=== PATIENT | female | born 1990 | race Two or more races ===

== ENCOUNTER 2018-08-26 07:15 | Inpatient (IN) | payer MEDICAID ==
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
[2018-09-22] MEDS ORDERED: TRANEXAMIC ACID 1,000 MG in NS 100 ML IV ONE ×2 (05:57→14:11)
[2018-09-22] MEDS ORDERED: ACETAMINOPHEN 500 MG TAB PO ONE (05:57)
[2018-09-22] MEDS ORDERED: PREGABALIN 150 MG CAP PO ONE (05:57)
[2018-09-22] MEDS ORDERED: SCOPOLAMINE HYDROBROMIDE 1 MG/3 DAYS PATCH TD ONE (05:57)
[2018-09-22] MEDS ORDERED: ceFAZolin 2 GM/DEXTROSE 100 ML IV ONE (05:57)
[2018-09-22] MEDS ORDERED: LIDOCAINE 1% 2 ML INJ ID PRN (06:01)
[2018-09-22] MEDS ORDERED: LR 1,000 ML IV ONE (06:01)
[2018-09-22] MEDS ORDERED: MIDAZOLAM 2 MG/2 ML VIAL IVP ONE (07:04)
--- NOTE | 2018-09-22 07:04 | PDANEPAE ---
ANE History of Present Illness right hip dysplasia ANE Past Medical History - Cardiovascular History Hx Hypertension: No Hx Arrhythmias: Yes Hx Chest Pain: No Hx Coronary Artery / Peripheral Vascular Disease: No Hx CHF / Valvular Disease: No Hx Palpitations: Yes Cardiovascular History Comment: pvcs. atrial septal defect. bubble study negative - Pulmonary History Hx COPD: No Hx Asthma/Reactive Airway Disease: No Hx Recent Upper Respiratory Infection: No Hx Oxygen in Use at Home: No Hx Sleep Apnea: No Sleep Apnea Screening Result - Last Documented: Negative - Neurologic History Hx Cerebrovascular Accident: No Hx Seizures: No Hx Dementia: No - Endocrine History Hx Diabetes: No Hypothyroid: No Hyperthyroid: No Obesity: mild - Renal History Hx Renal Disorders: No - Liver History Hx Hepatic Disorders: No - Neurological & Psychiatric Hx Hx Neurological and Psychiatric Disorders: No - Cancer History Hx Cancer: No - Congenital Disorder History Hx Congenital Disorders: Yes Congenital History Comment: ATRIAL SEPTAL DEFECT - GI History GERD: no Hx Gastrointestinal Disorders: Yes Gastrointestinal History Comment: IBS WITH CONSTIPATION - Other Health History Other Health History: polycystic ovarian disease. diminished hearing right ear - Chronic Pain History Chronic Pain: Yes (spine shoulder) - Surgical History Prior Surgeries: colonoscopy, endoscopy, vaginal , D&C ANE Review of Systems Review of systems is: negative Review of Systems: - Exercise capacity Exercise capacity: >=4 METS METS (RN): 5 METS ANE Patient History - Allergies Allergies/Adverse Reactions: morphine Allergy (Verified 09/19/18 16:09) Hives NSAIDS (Non-Steroidal Anti-Inflamma Allergy (Verified 09/19/18 16:09) avoid due to clotting issue sumatriptan Allergy (Verified 09/19/18 16:09) Hives - Home Medications Home medications: home medication list seen and reviewed Home Medications: Metformin HCl [Metformin 1000 mg] 1,000 mg PO BIDMEAL 09/08/18 [Last Taken 09/09] Pnv No.121/Iron/Folic Acid [ Multivitamin Tablet] 1 each PO DAILY [Last Taken 09/09/18] traMADol [Ultram 50 mg (*)] 50 mg PO QID PRN 09/08/18 [Last Taken 09/16/18 06:30 ] Diazepam [Valium 2 MG (*)] 2 mg PO Q6HRS PRN 09/12/18 [Last Taken 09/21/18 21:30 ] Naproxen Sodium [Naprelan] 500 mg PO BID 09/12/18 [Last Taken 09/19/18] oxyCODONE IR [Oxycodone Ir (*)] 5 - 10 mg PO Q6HRS PRN 09/12/18 [Last Taken 05/30 21:30] - NPO status NPO Status: no food or drink >8 hours NPO Since - Liquids (Date): 09/22/18 NPO Since - Liquids (Time): 03:30 NPO Since - Solids (Date): 09/21/18 NPO Since - Solids (Time): 20:00 - Anes Hx Anes Hx: no prior problems - Smoking Hx Smoking Status: Heavy smoker - Family Anes Hx Family Anes Hx: none Family Hx Anesthesia Complications: mother bp drops ANE Labs/Vital Signs - Vital Signs Vital Signs: reviewed preoperatively; see RN documention for details Blood Pressure: 114/75 Heart Rate: 82 Respiratory Rate: 16 O2 Sat (%): 97 Height: 162.56 cm Weight: 81.647 kg ANE Physical Exam - Airway Neck exam: FROM Mallampati Score: Class 2 Mouth exam: normal dental/mouth exam - Pulmonary Pulmonary: no respiratory distress - Cardiovascular Cardiovascular: regular rate and rhythym - ASA Status ASA Status: II ANE Anesthesia Plan Anesthesia Plan: general endotracheal anesthesia
[2018-09-22] MEDS ORDERED: PROPOFOL 200 MG/20 ML VIAL ONE (07:08)
[2018-09-22] MEDS ORDERED: fentaNYL 100 MCG/2 ML INJ ONE ×2 (07:08→13:21)
[2018-09-22] MEDS ORDERED: HYDROmorphONE/DILAUDID 2 MG/ML INJ ONE ×3 (07:08→14:24)
[2018-09-22] MEDS ORDERED: ROCURONIUM 50 MG/5 ML VIAL ONE ×2 (07:12→11:11)
[2018-09-22] MEDS ORDERED: LIDOCAINE 2% 5 ML SDV ONE (07:13)
[2018-09-22] MEDS ORDERED: MIDAZOLAM 2 MG/2 ML VIAL ONE (07:18)
[2018-09-22] MEDS ORDERED: DEXAMETHASONE 4 MG/ML VIAL ONE ×2 (07:29)
[2018-09-22] MEDS ORDERED: PHENYLEPHRINE HCL 100 MCG/ML SYR ONE (07:51)
[2018-09-22] MEDS ORDERED: CITRATE DEXTROSE SOLN 500 ML BAG ONE (08:02)
[2018-09-22] MEDS ORDERED: PROMETHAZINE HCL 25 MG/ML INJ IVP PRN (08:34)
[2018-09-22] MEDS ORDERED: METOCLOPRAMIDE 10 MG/2 ML VIAL IVP PRN ×2 (08:34→13:34)
[2018-09-22] MEDS ORDERED: LABETALOL HCL 5 MG/ML 20 ML MDV IVP PRN (08:34)
[2018-09-22] MEDS ORDERED: NALOXONE HCL 0.4 MG/ML INJ IVP PRN ×2 (08:34→13:34)
[2018-09-22] MEDS ORDERED: ALBUTEROL 3 ML DEYVIAL IH PRN (08:34)
[2018-09-22] MEDS ORDERED: LR 500 ML IV PRN (08:34)
[2018-09-22] MEDS ORDERED: MEPERIDINE 25 MG/0.5 ML AMP IVP PRN (08:34)
[2018-09-22] MEDS ORDERED: oxyCODONE IR 5 MG TAB PO PRN (08:34)
[2018-09-22] MEDS ORDERED: PHENYLEPHRINE HCL 100 MCG/ML SYR IVP PRN (08:34)
[2018-09-22] MEDS ORDERED: ACETAMINOPHEN 500 MG TAB PO PRN (08:34)
[2018-09-22] MEDS ORDERED: ONDANSETRON 4 MG/2 ML VIAL ONE (11:46)
[2018-09-22] MEDS ORDERED: ceFAZolin 1 GM VIAL ONE (12:22)
[2018-09-22] MEDS: fentaNYL 100 MCG/2 ML INJ IVP PRN ×2 (13:23→13:40)
[2018-09-22] MEDS ORDERED: LACTULOSE 20 GM/30 ML UDCUP PO PRN (13:32)
[2018-09-22] MEDS ORDERED: ONDANSETRON DISINTEGRATING 4 MG TAB PO PRN (13:32)
[2018-09-22] MEDS ORDERED: MAGNESIUM HYDROXIDE 30 ML UDCUP PO PRN (13:32)
[2018-09-22] MEDS ORDERED: POLYETHYLENE GLYCOL 3350 17 GM PKT PO PRN (13:32)
[2018-09-22] MEDS ORDERED: BISACODYL 10 MG SUPP PR PRN (13:32)
[2018-09-22] MEDS ORDERED: ACETAMINOPHEN 325 MG TAB PO PRN ×2 (13:32→13:34)
[2018-09-22] MEDS ORDERED: ONDANSETRON 4 MG/2 ML VIAL IVP PRN (13:32)
[2018-09-22] MEDS ORDERED: diphenhydrAMINE 25 MG CAP PO PRN (13:34)
[2018-09-22] MEDS ORDERED: oxyCODONE IR 15 MG TAB PO PRN (13:36)
[2018-09-22] MEDS: DIAZEPAM 5 MG/ML 1 ML SYR IVP PRN ×2 (13:55→14:10)
[2018-09-22] MEDS ORDERED: DIAZEPAM 5 MG/ML 1 ML SYR ONE (13:56)
[2018-09-22] MEDS: HYDROmorphONE/DILAUDID 2 MG/ML INJ IVP PRN ×4 (14:25→15:54)
--- NOTE | 2018-09-22 14:46 | POSTANESTH ---
Post Anesthetic Evaluation Cardiovascular Status: Normal, Stable Respiratory Status: Normal, Stable Level of Consciousness/Mental Status: Can Participate in Eval Pain Control: Adequate, Prn Tx Ordered Nausea/Vomiting Control: Adequate, Prn Tx Ordered Complications Possibly Related to Anesthesia: None Noted
[2018-09-22] MEDS ORDERED: oxyCODONE IR 5 MG TAB ONE (14:49)
[2018-09-22] MEDS: oxyCODONE IR 5 MG TAB PO SCH ×3 (14:53→22:16)
--- NOTE | 2018-09-22 14:54 | PDMN ---
Medical Necessity Medical necessity: [facility] Musculoskeletal Surgery or Procedure: 28 yo s/p periacetabular osteotomy (OCTAVIANO) for hip dysplasia, [facility] obdulia
[2018-09-22] MEDS: DIAZEPAM 2 MG TAB PO PRN ×2 (17:00→23:11)
[2018-09-22] MEDS: HYDROmorphONE/DILAUDID 6 MG/30 ML PCA IV PRN (18:03)
[2018-09-22] MEDS: NS 1,000 ML IV SCH (18:04)
--- NOTE | 2018-09-22 18:07 | SUROPNOTE ---
ANJALI Operative Report - Surgery OPERATION NOTE~on Kenrcik Tobin Surgery was performed at:~[facility] Date of Surgery:~09/09/2018 Diagnosis:~ 1. Right~Femoroacetabular impingement (MARCE) Cam type, labral tear 2. Right~Hip Dyplasia Operation:~Right~Arthroscopic Labral repair~and ADVANECENT, CAM resection, Synovectomy, Capsular repair Indication: Failure to obtain satisfactory results with long standing conservative measures. Surgeon:~~~~~~~~~~~Kevin Hartley MD ~ Net Software Engineer:~~~~~~~~~~~~~WILLEM Pedro MD Anaesthetic:~~~~~General Findings~ Right~Hip: Labrum:~Torn and Frayed around~10-2~O'clock.~Everted mostly psoteriorly. Acetabulum:~Normal Fovea:~Partial tear of LT Femoral Head:~Normal cartilage Synovium:~severe~synovitis Peripheral Compartment:~Anterolateral CAM between~12~O'clock superiorly and 5~O' clock anteriorly Procedure: Supine on operating table. General anaesthetic. Antibiotics given. Standard traction set up, without perineal post. A spinal needle was guided to the femoral head neck junction and traction gradually applied with the joint vented. Local anesthetic infiltrated into the skin around the portals. Once~20mm of distraction was achieved the hip needle was then passed into the joint staying as close to the femoral head as possible. A Nytenol wire was passed through the hip needle ensuring that it passed all the way to the fovea to confirm central placement of the needle. Skin was incised and then the portals sequentially dilated to 7 mm. Switching stick inserted and 30 scope passed over the top. Under dry scope conditions the anterior portal was created by passing the hip needle into the joint under direct vision. Again this was dilated up to 7 mm and the slotted canule was inserted. The saline was then turned on and the joint irrigated. The joint was carefully inspected and photographed with findings as above. The arthroscope was switched to the 70 scope to complete the inspection. A longitudinal intra portal capsulotomy was then performed using sleetmute blade and the 50 Arthrocare wand to connect the two portals. Central Compartment Intervention: Synovectomy was performed.~ (Modifier 22:) In addition to the [place] labrum being torn, it was also found to be everted away from the femoral head missing the physiological suction seal function.Inorder to remedy this condition the torn labrum had to be carefully from the rim and advanced towards the femoral head without compromising tissue quality and quantity.Thelabrum was then secured in an inverted position off-traction, making sure it restores the missing suction seal using an inside-out mattress sutra anchors technique. Technique:~ With the assistance of the wand the acatabular rim was then exposed between~10~ and 2~Oclock and was slightly refined with a motorized dick to achieve a bleeding bone for optimal labral healing. The labrum was then~ADVANCED and~ repaired~with 3~peek anchors, achieving good anatomical rim fixation. LT was treated with RF wand to shrink and stabilize reactive tissue.~ Peripheral Compartment Intervention:~ A box-shaped capsulotomy was made with the assistance of SpeedStitch traction suture. This allowed traction on the capsule and a good view of the femoral neck with smaller capsulotomy. The articular margin where sphericity was lost was marked with the Arthrocare wand under X-ray control. Bone lateral to this was removed with the the dick. Portals were switched to deal with the superior headneck junction. Care was taken not to stray posterior and laterally in view of the location of the retinacular vessels. The cam lesion was addressed from~12~to 5~O'clock. A dynamic impingement test was undertaken and vision with~90 of flexion and~10 of internal rotation to confirm that there was no bony or soft tissue impingement or deformation of the labrum. ~Good clearance was obtained with good labral seal. The joint was thoroughly irrigated of any loose debris and the anterior capsule was repaired with~4~No.1 vicryl stitches, closing 90% of the capsulotomy. The skin was then closed with Nylon. Padded dressing was applied. After surgery,~Kenrick X~moved both lower limbs and had no NV compromise. Specimen - none Bleeding -~10ml Complication - none Evaluation under Anesthesia: Pre: IR 90 ER 90 ABD Flexion Right 30 60 50 120 Left 30 50 50 120 Post op instructions: 1.~Non~weight bearing crutches for 2~weeks - ok to toe touch 2. Pain killers as prescribed 3. Follow up visit with me, as scheduled, where a rehab protocol would be discussed 4. Avoid hip external rotation for 4 weeks 5. ~~25 days of NSAIDS need to be taken in order to prevent the possible formation of HO ~ Kind regards, ~~ Dr. Kevin Hartley
[2018-09-22] MEDS: oxyCODONE IR 5 MG TAB PO PRN (20:22)
[2018-09-22] MEDS: SENNOSIDES/DOCUSATE SODIUM TAB PO SCH (20:23)
[2018-09-23] MEDS: oxyCODONE IR 5 MG TAB PO SCH ×6 (06:04→22:22)
[2018-09-23] MEDS: DIAZEPAM 2 MG TAB PO PRN ×4 (06:04→22:24)
[2018-09-23] MEDS: oxyCODONE IR 5 MG TAB PO PRN ×3 (07:49→20:01)
[2018-09-23] MEDS: HYDROmorphONE/DILAUDID 6 MG/30 ML PCA IV PRN ×2 (10:20→16:35)
[2018-09-23] MEDS: PANTOPRAZOLE SODIUM 40 MG TAB PO SCH (10:24)
[2018-09-23] MEDS: SENNOSIDES/DOCUSATE SODIUM TAB PO SCH ×2 (10:24→19:57)
--- NOTE | 2018-09-23 13:58 | ASMTCMCOM ---
CM Note CM Note Notes: Pt had planned surgery for hip dysplasia. 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 PT rec home/outpatient. Anticipate pt will d/c when medically stable following MD rec for outpatient PT. CM available for changes/needs. Date Signed: 09/23/2018 01:57 PM Electronically Signed By:AGA Forman
[2018-09-23] MEDS ORDERED: traMADol 50 MG TAB PO PRN (15:26)
--- NOTE | 2018-09-23 17:17 | GHP ---
[f rep st] HISTORY AND PHYSICAL DATE OF ADMISSION: 09/22/2018 HEMATOLOGY CONSULTATION REASON FOR CONSULTATION: To clarify patient's hematologic history. HISTORY OF PRESENT ILLNESS: The patient is a pleasant 28-year-old female who is admitted to [facility] following a right arthroscopic labral repair performed yesterday September 22. The patient was previously seen preoperatively by Dr. Chacorta Bearden, a bioinformatics developer in [place], [place]. The patient had reported a history of easy bruisability and heavy menses. She had a full hematologic evaluation performed which initially revealed a slightly prolonged PTT. Further evaluation revealed no evidence of a factor deficiency. She had no evidence of von Willebrand's disease. She is not felt to have any coagulation abnormality, and Dr. Bearden felt she was fine to proceed with her planned surgery. The patient underwent surgery yesterday. She has had no abnormal bleeding either intraoperatively or postoperatively. Her postoperative surgical site is bandaged, and there has been no recent bleeding. Her orthopedic surgeon has recommended aspirin therapy for 25 days postop. PAST MEDICAL HISTORY: 1. Polycystic ovarian syndrome. 2. History of atrial septal defect. 3. History of migraine headaches. PAST SURGICAL HISTORY: Prior wisdom tooth extraction. FAMILY MEDICAL HISTORY: The patient's mother was suspected of having von Willebrand's disease, but the diagnosis has not been confirmed. SOCIAL HISTORY: The patient lives in [place], [place]. 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 She smokes half a pack of cigarettes daily. REVIEW OF SYSTEMS: The patient denies any bleeding at the current time. She denies any extremity pain or swelling. PHYSICAL EXAM: GENERAL: Patient is resting comfortably in bed. She is in no acute distress. The surgical incisions overlying the right hip are bandaged. The bandage is clean, dry, and intact with no evidence of recent bleeding. LABORATORY STUDIES: CBC from this morning reveals a white count of 15.4, hemoglobin 11.2, platelet count of 241,000. IMPRESSION AND PLAN: The patient is a pleasant 28-year-old female who has undergone right arthroscopic labral repair and is doing well postoperatively. She had reported a history of easy bruisability and heavy menses prior to her operation. She was seen by a bioinformatics developer, Dr. Chacorta Bearden. A full evaluation done at that time revealed no evidence of an underlying coagulation disorder. I thus do not recommend any specific intervention postoperatively. I see no contraindication to the 25 days of NSAID therapy, as recommended by her orthopedist. I discussed this with the patient this evening. She does have followup with Dr. Bearden in [place] next week, and I will update him on her progress. Our service will sign off at this point. Please do not hesitate to contact me with any additional questions. Her case was briefly discussed with Nursing. Total time for today's visit was approximately 25 minutes, of which greater than 50% was spent in counseling and care coordination. Copy requested to: Dr. Chacorta Bearden [place], [place] /[id number]/MODL MTDD
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
[2018-09-23] MEDS: metFORMIN HCL 500 MG TAB PO SCH (19:59)
[2018-09-23] MEDS: NS 1,000 ML IV SCH (22:21)
[2018-09-23] MEDS: NAPROXEN SODIUM 220 MG TAB PO SCH (22:23)
[2018-09-24] MEDS: oxyCODONE IR 5 MG TAB PO SCH ×6 (02:14→22:58)
[2018-09-24] MEDS: DIAZEPAM 2 MG TAB PO PRN ×3 (05:07→18:18)
[2018-09-24 05:24] LABS: PLATELET COUNT 204 10^3/uL (150-400)
[2018-09-24] MEDS: HYDROmorphONE/DILAUDID 6 MG/30 ML PCA IV PRN (06:27)
[2018-09-24] MEDS: metFORMIN HCL 500 MG TAB PO SCH ×2 (09:33→18:32)
[2018-09-24] MEDS: NAPROXEN SODIUM 220 MG TAB PO SCH ×3 (09:34→22:58)
[2018-09-24] MEDS: PANTOPRAZOLE SODIUM 40 MG TAB PO SCH (09:34)
[2018-09-24] MEDS: PRENATAL VIT 1 EACH TAB PO SCH (09:34)
[2018-09-24] MEDS: SENNOSIDES/DOCUSATE SODIUM TAB PO SCH ×2 (10:09→20:04)
[2018-09-24] MEDS: oxyCODONE IR 5 MG TAB PO PRN ×3 (11:40→20:02)
--- NOTE | 2018-09-24 12:50 | HOSPPROG ---
Hospitalist Progress Note Assessment/Plan: 28F s/p OCTAVIANO. # easy bruising and bleeding - per Dr Serrano, there is no underlying pathology that has been identified - ok for asa ppx # PCOS - metformin # menorrhagia - IUD # obesity - BMI 30 Subjective: c/o L hip pain; eating ok; alex out, still has not urinated Objective: Vital Signs Temp Pulse Resp BP Pulse Ox 37.2 C 100 18 108/56 L 94 09/24/18 11:46 09/24/18 11:46 09/24/18 11:46 09/24/18 11:46 09/24/18 11:46 Laboratory Results 09/24/18 04:38 09/23/18 04:37 09/23/18 09/24/18 09/25/18 05:59 05:59 05:59 Intake Total 3530 3995 400 Output Total 3450 650 2100 Balance 80 3345 -1700 chart reviewed fluoro reviewed post-op note reviewed - Physical Exam Constitutional: no apparent distress, appears nourished Cardiovascular: regular rate and rhythym, no murmur, rub, or gallop Respiratory: no respiratory distress, no rales or rhonchi, clear to auscultation Gastrointestinal: normoactive bowel sounds, soft, non-tender abdomen, no palpable masses ICD10 Worksheet Patient Problems: Problems Problem Status Onset Hip dysplasia Acute
[2018-09-24] MEDS: ASPIRIN EC 81 MG TAB PO SCH (16:06)
--- NOTE | 2018-09-24 21:31 | SOAPPROG ---
SOAP Progress Note Assessment/Plan: Assessment: 28 yo F POD #2 s/p R OCTAVIANO, doing well. 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 Hartley prior to discharge Possible d/c home Saturday if pain controlled, safe from PT standpoint, XR cleared 09/24/18 21:28 Subjective: Pt reports some issues with muscle spasm/pain, but was able to ambulate in the hallway today. Gamez out and voiding. No CP/SOB. Objective: Vital Signs Temp Pulse Resp BP Pulse Ox 36.6 C 103 H 16 113/61 92 09/24/18 19:40 09/24/18 19:40 09/24/18 19:40 09/24/18 19:40 09/24/18 19:40 Laboratory Results 09/24/18 04:38 09/23/18 04:37 09/23/18 09/24/18 09/25/18 05:59 05:59 05:59 Intake Total 3530 3995 900 Output Total 3450 650 4300 Balance 80 3345 -3400 Gen: NAD R hip dressings c/d/i Mild hematoma/bruising at operative site Lateral thigh numbness in LFCN distribution 5/5 TA, GSC, EHL SILT throughout foot ICD10 Worksheet Patient Problems: Problems Problem Status Onset Hip dysplasia Acute
[2018-09-25] MEDS: DIAZEPAM 2 MG TAB PO PRN ×3 (03:17→16:49)
[2018-09-25] MEDS: oxyCODONE IR 5 MG TAB PO SCH ×5 (03:17→17:56)
[2018-09-25] MEDS: NAPROXEN SODIUM 220 MG TAB PO SCH ×2 (08:25→16:49)
[2018-09-25] MEDS: PRENATAL VIT 1 EACH TAB PO SCH (08:26)
[2018-09-25] MEDS: metFORMIN HCL 500 MG TAB PO SCH ×2 (08:26→17:55)
[2018-09-25] MEDS: ASPIRIN EC 81 MG TAB PO SCH (08:27)
[2018-09-25] MEDS: PANTOPRAZOLE SODIUM 40 MG TAB PO SCH (08:28)
[2018-09-25] MEDS: SENNOSIDES/DOCUSATE SODIUM TAB PO SCH (09:14)
--- NOTE | 2018-09-25 10:07 | HOSPPROG ---
Hospitalist Progress Note Assessment/Plan: 28F s/p OCTAVIANO POD#3 # easy bruising and bleeding - per Dr Serrano, there is no underlying pathology that has been identified - ok for asa ppx # pain - cont apap, valium, dilaudid FERRYBOAT DECKHAND, aleve, oxy # PCOS - metformin # menorrhagia - IUD # obesity - BMI 30 Subjective: pain does not seem better today; ate breakfast without nausea Objective: Vital Signs Temp Pulse Resp BP Pulse Ox 36.9 C 90 14 107/60 97 09/25/18 07:26 09/25/18 07:26 09/25/18 07:26 09/25/18 07:26 09/25/18 07:26 Laboratory Results 09/24/18 04:38 09/23/18 04:37 09/24/18 09/25/18 09/26/18 05:59 05:59 05:59 Intake Total 3995 1850 Output Total 650 5000 Balance 3345 -3150 high risk on dilaudid FERRYBOAT DECKHAND - Physical Exam Constitutional: appears nourished, uncomfortable (difficulty sitting in wheelchair) Cardiovascular: regular rate and rhythym, no murmur, rub, or gallop Respiratory: no respiratory distress, no rales or rhonchi, clear to auscultation Gastrointestinal: normoactive bowel sounds, soft, non-tender abdomen, no palpable masses ICD10 Worksheet Patient Problems: Problems Problem Status Onset Hip dysplasia Acute
[2018-09-25] MEDS: oxyCODONE IR 5 MG TAB PO PRN ×2 (10:15→20:03)
[2018-09-25 16:10] VITALS: BP 96/55
--- NOTE | 2018-09-25 18:36 | SOAPPROG ---
ROSEY Progress Note Assessment/Plan: Assessment: 3 days post op Right Periacetabular Osteotomy Plan: D/C home see discharge instructions 09/25/18 18:35 Subjective: Marva is doing well this evening. Her pain is well controlled with Oxycodone, she denies and nausea, cp or sob. She is ready to go home. Objective: Vital Signs Temp Pulse Resp BP Pulse Ox 37.1 C 98 16 96/55 L 96 09/25/18 16:00 09/25/18 16:00 09/25/18 16:00 09/25/18 16:00 09/25/18 16:00 Laboratory Results 09/24/18 04:38 09/23/18 04:37 09/24/18 09/25/18 09/26/18 05:59 05:59 05:59 Intake Total 3995 1850 1000 Output Total 650 5000 300 Balance 3345 -3150 700 Well appearing in NAD Right hip: dressings clean dry intact surrounding ecchymosis edema some thigh numbness NVI distally full ROM of foot and ankle X-ray shows good screw and bone fixation - Pending Discharge Pending Discharge Within 24 Hours: Yes Pending Discharge Date: 09/26/18 Pending Discharge Time: 11:00 ICD10 Worksheet Patient Problems: Problems Problem Status Onset Hip dysplasia Acute
--- NOTE | 2018-09-29 17:16 | GDS ---
[f rep st] DISCHARGE SUMMARY The patient underwent a right periacetabular osteotomy for right hip acetabular dysplasia on 09/22/19. Intraoperatively, Gamez and spinal catheters were placed. 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 Gamez catheter was discontinued on her 2nd postoperative day a nd was transitioned to p.o. medications at that time. Pelvis x-ray was obtained on the 3rd postopera tive day, and she was discharged on 3rd postoperative day in good condition. She will be nonweightbe aring on her right lower extremity for 2 weeks until she sees Dr. Hartley from the clinic for postope rative check. She will be using sequential compression devices 24 hours a day, 7 days a week for 2 w eeks and thereafter only at night for another week. She will be also using 81 mg baby aspirin daily for 1 month. Both of these for DVT prophylaxis. She will finish naproxen. She was discharged in go od condition. /[id number]/MODL
== END 2018-09-25 20:46 | disposition home or self-care (01) | DRG 320 ==
LOC: F3N 09-22 05:22
PROVIDERS: ADMIT Orthopaedic Surgery Sports Medicine; ATTEND Orthopaedic Surgery Sports Medicine
DX: M25.851 Other specified joint disorders, right hip (principal); M24.151 Other articular cartilage disorders, right hip; D68.0 Von Willebrand disease; E28.2 Polycystic ovarian syndrome; Q21.1 Atrial septal defect; G43.909 Migraine, unspecified, not intractable, without status migrainosus; E66.9 Obesity, unspecified; Z68.30 Body mass index [BMI] 30.0-30.9, adult
CPT/HCPCS: 97116-GP; 97161-GP; 97167-GO; 97530-GP; 97535-GO; C1713; J0690; J1100; J1170; J2250; J2370; J2405; J2704; J3010; J3360

== ENCOUNTER 2018-09-09 08:13 | Day surgery (SDC) | payer MEDICAID ==
[2018-09-09] MEDS ORDERED: LIDOCAINE 1% 2 ML INJ ID PRN (08:27)
[2018-09-09] MEDS ORDERED: LR 1,000 ML IV ONE (08:27)
[2018-09-09] MEDS ORDERED: BUPIVACAINE/EPI 0.5% 30 ML SDV ONE (08:49)
[2018-09-09] MEDS ORDERED: EPINEPHrine 30 MG/30 ML MDV (0.1 MG/0.1 ML) ONE (08:50)
[2018-09-09] MEDS ORDERED: BUPIVACAINE 0.25% 30 ML SDV ONE (08:51)
[2018-09-09] MEDS ORDERED: MIDAZOLAM 2 MG/2 ML VIAL IVP ONE (09:18)
--- NOTE | 2018-09-09 09:18 | PDANEPAE ---
ANE History of Present Illness right hip pain, here for scope and prep for OCTAVIANO next week ANE Past Medical History - Cardiovascular History Hx Hypertension: No Hx Arrhythmias: Yes Hx Chest Pain: No Hx Coronary Artery / Peripheral Vascular Disease: No Hx CHF / Valvular Disease: No Hx Palpitations: Yes Cardiovascular History Comment: pvcs, atrial septal defect, bubble study negative - Pulmonary History Hx COPD: No Hx Asthma/Reactive Airway Disease: No Hx Recent Upper Respiratory Infection: No Hx Oxygen in Use at Home: No Hx Sleep Apnea: No - Neurologic History Hx Cerebrovascular Accident: No Hx Seizures: No Hx Dementia: No - Endocrine History Hx Diabetes: No - Renal History Hx Renal Disorders: No - Liver History Hx Hepatic Disorders: No - Neurological & Psychiatric Hx Hx Neurological and Psychiatric Disorders: No - Cancer History Hx Cancer: No - Congenital Disorder History Hx Congenital Disorders: Yes Congenital History Comment: ATRIAL SEPTAL DEFECT - GI History Hx Gastrointestinal Disorders: Yes Gastrointestinal History Comment: ibs WITH CONSTIPATION - Other Health History Other Health History: polycystic ovarian disease - Chronic Pain History Chronic Pain: Yes - Surgical History Prior Surgeries: colonoscopy, endoscopy, vaginal , D&C ANE Review of Systems Review of Systems: - Exercise capacity METS (RN): 5 METS ANE Patient History - Allergies Allergies/Adverse Reactions: NSAIDS (Non-Steroidal Anti-Inflamma Allergy (Mild, Verified 09/09/18 08:32) Other-Enter Comments morphine Allergy (Verified 08/19/18 16:44) Hives sumatriptan Allergy (Verified 09/09/18 08:32) - Home Medications Home Medications: Metformin HCl [Metformin 1000 mg] 1,000 mg PO BIDMEAL 09/08/18 [Last Taken 09/06] Pnv No.121/Iron/Folic Acid [ Multivitamin Tablet] 1 each PO DAILY [Last Taken 09/06/18] traMADol [Ultram 50 mg (*)] 50 mg PO QID 09/08/18 [Last Taken 09/09/18 04:40] - NPO status NPO Since - Liquids (Date): 09/09/18 NPO Since - Liquids (Time): 05:50 NPO Since - Solids (Date): 09/08/18 NPO Since - Solids (Time): 19:00 - Smoking Hx Smoking Status: Heavy smoker ANE Labs/Vital Signs - Vital Signs Blood Pressure: 113/74 Heart Rate: 81 Respiratory Rate: 17 O2 Sat (%): 98 Height: 161.29 cm Weight: 86.183 kg ANE Physical Exam - Airway Neck exam: FROM Mallampati Score: Class 1 Mouth exam: normal dental/mouth exam - Pulmonary Pulmonary: no respiratory distress, no rales or rhonchi - Cardiovascular Cardiovascular: regular rate and rhythym, no murmur, rub, or gallop - ASA Status ASA Status: II ANE Anesthesia Plan Anesthesia Plan: general endotracheal anesthesia Total IV Anesthesia: No
[2018-09-09] MEDS ORDERED: SCOPOLAMINE HYDROBROMIDE 1 MG/3 DAYS PATCH TD SCH (09:30)
[2018-09-09] MEDS ORDERED: ACETAMINOPHEN 500 MG TAB PO ONE (09:39)
[2018-09-09] MEDS ORDERED: ceFAZolin 2 GM/DEXTROSE 100 ML IV ONE (09:39)
[2018-09-09] MEDS ORDERED: PREGABALIN 150 MG CAP PO ONE (09:39)
[2018-09-09] MEDS ORDERED: CEFAZOLIN 2 GM/DEXTROSE/100 ML BAG IV ONE (09:44)
[2018-09-09] MEDS ORDERED: fentaNYL 250 MCG/5 ML INJ ONE (09:53)
[2018-09-09] MEDS ORDERED: LIDOCAINE 2% 100 MG/5 ML SYR ONE (09:53)
[2018-09-09] MEDS ORDERED: PROPOFOL 200 MG/20 ML VIAL ONE (09:54)
[2018-09-09] MEDS ORDERED: PROPOFOL/EMULSION 500 MG/50 ML BOTTLE IV ONE ×6 (09:54→12:29)
[2018-09-09] MEDS ORDERED: ROCURONIUM 50 MG/5 ML VIAL ONE (12:12)
[2018-09-09] MEDS ORDERED: HYDROmorphONE/DILAUDID 2 MG/ML INJ ONE ×2 (13:18→16:10)
[2018-09-09] MEDS ORDERED: PROMETHAZINE HCL 25 MG/ML INJ IVP PRN (13:38)
[2018-09-09] MEDS ORDERED: MEPERIDINE 25 MG/0.5 ML AMP IVP PRN (13:38)
[2018-09-09] MEDS ORDERED: NALOXONE HCL 0.4 MG/ML INJ IVP PRN ×2 (13:38→15:32)
[2018-09-09] MEDS ORDERED: HYDROmorphONE/DILAUDID 2 MG/ML INJ IVP PRN (13:38)
--- NOTE | 2018-09-09 14:38 | POSTOPPROG ---
Post Op Note Date of Operation: 09/09/18 Surgeon: Kevin Hartley Toe Pounder: Dr. Pedro Anesthesia: GET(General Endotracheal) Pre-op Diagnosis: RIGHT MARCE Post-op Diagnosis: RIGHT MARCE Procedure: Right Hip arthroscopy Inf/Abcess present in the surg proc area at time of surgery?: No
[2018-09-09] MEDS ORDERED: fentaNYL 100 MCG/2 ML INJ ONE (15:11)
[2018-09-09] MEDS: fentaNYL 100 MCG/2 ML INJ IVP PRN ×2 (15:13→15:49)
[2018-09-09] MEDS ORDERED: oxyCODONE IR 5 MG TAB ONE ×2 (15:58→17:41)
[2018-09-09] MEDS: oxyCODONE IR 5 MG TAB PO PRN ×2 (16:00→18:04)
--- NOTE | 2018-09-09 16:20 | POSTANESTH ---
Post Anesthetic Evaluation Cardiovascular Status: Normal, Stable Respiratory Status: Normal, Stable Level of Consciousness/Mental Status: Can Participate in Eval, Alert and Oriented Pain Control: Adequate, Prn Tx Ordered Nausea/Vomiting Control: Adequate, Prn Tx Ordered Complications Possibly Related to Anesthesia: None Noted
[2018-09-09] MEDS ORDERED: DIAZEPAM 5 MG/ML 1 ML SYR ONE (17:41)
[2018-09-09 17:43] VITALS: BP 131/86
[2018-09-09] MEDS: DIAZEPAM 5 MG/ML 1 ML SYR IVP PRN ×2 (17:48→18:04)
[2018-09-12] MEDS ORDERED: PATCH REMOVAL 1 EA PATCH TD SCH (09:18)
== END 2018-09-09 18:15 | disposition home or self-care (01) ==
LOC: FSGY 08:13
PROVIDERS: ATTEND Orthopaedic Surgery Sports Medicine
PROC: BQ101ZZ Fluoroscopy of Right Hip using Low Osmolar Contrast (ICD-10-PCS; principal; 2018-09-09 09:30)
PROC: 0SB94ZZ Excision of Right Hip Joint, Percutaneous Endoscopic Approach (ICD-10-PCS; principal; 2018-09-09 09:30)
PROC: 0SQ94ZZ Repair Right Hip Joint, Percutaneous Endoscopic Approach (ICD-10-PCS; principal; 2018-09-09 09:30)
DX: M25.851 Other specified joint disorders, right hip (principal); Q65.89 Other specified congenital deformities of hip; M65.88 Other synovitis and tenosynovitis, other site; Q21.1 Atrial septal defect; F17.200 Nicotine dependence, unspecified, uncomplicated
CPT/HCPCS: C1713; J0171; J0690; J1170; J2001; J2250; J2704; J3010; J3360